=== PATIENT | male | born 1940 | race Caucasian/White ===

== ENCOUNTER 2017-09-19 12:44 | Observation (INO) | payer OTHER ==
[~2017-09-19] VITALS: Ht 170.2 cm; Wt 74.0 kg
[~2017-09-19 12:44] MED LIST: ASPCH81X PO; CARV12.52 PO; FRS/40 PO; IMDSR/30 PO; LISI-729 PO; POTA-335 PO; QUET1TAB30 PO; TAMS0.4C38 PO
[2017-09-19] MEDS ORDERED: PATIENT'S HEIGHT AND/OR WEIGHT NEEDED SCH (16:45)
--- NOTE | 2017-09-19 16:53 | History and Physical ---
History & Physical Date & Time of Service: Sep 19, 2017 at 16:45 Chief Complaint: Ischemic Cardio Myopathy,Defibrillator Lead [place] Primary Care Physician: Parth Flowers M.D. History of Present Illness Source: patient defibrillator is beeping Past Medical/Surgical History Medical Problems: (1) AICD lead malfunction (2) Ischemic dilated cardiomyopathy CAD Chronic systolic HF-NYHA class I RBBB HTN HLD Family History non-contributory Social History life long non-smoker Rare ETOH Smoking Status: Never Smoker Smokeless Tobacco Use: No Alcohol Use: socially Drug Use: none Occupational Status: retired Immunizations History of Influenza Vaccine: Unknown History of Tetanus Vaccine?: Unknown History of Pneumococcal: Unknown History of Hepatitis B Vaccine: Unknown Multi-Drug Resistant Organisms History of MDRO: No Allergies Coded Allergies: No Known Allergies (Unverified , 01/05/15) Home Medications Scheduled Aspirin (Aspirin Chewable), 81 MG PO DAILY Carvedilol (Coreg), 12.5 MG PO BID Furosemide (Lasix), 40 MG PO DAILY Isosorbide Mononitrate (Isosorbide Mononitrate ER), PO DAILY Lisinopril (Zestril), 5 MG PO DAILY Potassium Chloride (Micro-K Ext Rel), 20 MEQ PO DAILY Quetiapine Fumarate (Seroquel), 25 MG PO HS Tamsulosin Hcl (Flomax), 0.4 MG PO DAILY Review of Systems Constitutional: No fever, No weakness, No fatigue Eyes: No worsening of vision ENT: No sore throat Respiratory: No cough, No shortness of breath, No dyspnea on exertion Cardiovascular: No chest pain, No orthopnea, No edema, No palpitations Abdomen: No nausea, No vomiting, No diarrhea, No constipation Musculoskeletal: No joint pain, No swelling Genitourinary - Male: No hematuria, No dysuria Neurologic: No weakness Endocrine: No fatigue Integumentary: No rash Physical Exam General Appearance: WD/WN, no apparent distress Head: normocephalic, atraumatic Eyes: PERRL, EOMI Neck: supple, no JVD Respiratory/Chest: lungs clear, normal breath sounds Cardiovascular: regular rate, rhythm, no edema, no murmur Abdomen/GI: non tender, soft Extremities/Musculoskelatal: no pedal edema Neurologic/Psych: alert, oriented x 3 Skin: warm/dry (ICD site no threatened erosion) Diagnostics Laboratory Results labs pending ICD Interrogation in our office earlier today: Noise on the ICD lead unable to program around-concern for possible lead fracture Tachy therapies turned off Results Past 24 Hours Test 09/19/17 16:29 Range/Units Diagnostic Radiology cxr pending EKG pending Impression Assessment and Plan Impression: 1. ICD lead malfunction 2. ICM EF 20% s/p Single chamber ICD in 12/2014 3. CAD severe triple vessel disease medically managed 4. Chronic systolic HF-NYHA class I 5. RBBB 6. LAFB 7. HLD 8. HTN 9. MR 10. AI Plan: -for ICD lead revision tomorrow -NPO after midnight -Monitor on telemetry as his ICD tachy therapies are turned off so he will not receive an ICD shock should he go into VT/VF -Continue home medications -pre-op labs -cxr -ecg ASA Classification: ASA Class II Level of Care Telemetry Resuscitation Status FULL RESUSCITATION VTE Prophylaxis Risk Level: Low Given or contraindicated: T.E.D. Stockings Note Total Time: Critical Care 30 - 74 minutes
[2017-09-19 17:59] LABS: HEMOGLOBIN 14.5 g/dL (14.0-18.0); MEAN CELL VOLUME 92.1 fL (80-100); MEAN CORPUSCULAR HEMOGLOBIN 32.6 pg (25-34); MEAN CORPUSCULAR HGB CONC 35.4 g/dl (32-36); MEAN PLATELET VOLUME 10.2 fL (7.4-10.4); PLATELET COUNT 241 K/uL (130-400); RED CELL DISTRIBUTION WIDTH CV 13.1 % (11.5-14.5); WHITE BLOOD COUNT 7.86 K/uL (4.8-10.8)
[2017-09-19 18:19] LABS: BLOOD UREA NITROGEN 26 mg/dl (7-18); CALCIUM 8.8 mg/dl (8.5-10.1); CARBON DIOXIDE 26 mmol/L (21-32); CREATININE 1.34 mg/dl (0.60-1.40); GLUCOSE 97 mg/dl (70-99); POTASSIUM 4.2 mmol/L (3.5-5.1); SODIUM 137 mmol/L (136-145)
[2017-09-19 18:24] VITALS: BP 145/91; PULSE 95; TEMP 36.8; O2SAT 98; Ht 170.2 cm; Wt 74.0 kg
[2017-09-19] MEDS ORDERED: IV FLUIDS COMPLETED PRN (18:30)
[2017-09-19] MEDS ORDERED: NURSING VERBAL MED ORDER ONE ×2 (19:00→19:30)
[2017-09-19 19:15] VITALS: BP 122/68; PULSE 95; TEMP 36.7; O2SAT 94
[2017-09-19] MEDS ORDERED: PNEUMOCOCCAL ADMINISTRATION CHARGE ONE (19:30)
[2017-09-19] MEDS ORDERED: PNEUMOCOCCAL POLYSACCHARIDES 25 MCG/0.5 ML VIAL/SYR IM. ONE (19:30)
--- NOTE | 2017-09-19 19:42 | DIAGNOSTIC IMAGING REPORT ---
CHEST 2 VIEWS ROUTINE HISTORY: 77 years-old Male EXACT TIME ORDERED Evaluate for pneumothorax and lead placement status post placement of a left subclavian pacer/AICD. COMPARISON: Chest radiograph 01/07/2015 TECHNIQUE: PA and lateral views of the chest FINDINGS: Cardiac silhouette is within the upper limits of normal in size. Status post placement of a left subclavian pacer/AICD with single lead overlying the region of the right ventricle. No postprocedural pneumothorax identified. Lungs are clear without pleural effusion, focal airspace consolidation or overt pulmonary edema. Degenerative changes are seen within the shoulders and spine. IMPRESSION: Status post placement of a left subclavian pacer/AICD with single lead overlying the right ventricle. No postprocedural pneumothorax identified. The above report was generated using voice recognition software. It may contain grammatical, syntax or spelling errors. Electronically signed by: Kevin Johnson M.D. 09/19/2017 7:41 PM Dictated Date/Time: 09/19/2017 7:39 PM
[2017-09-19 20:00] VITALS: O2SAT 98
[2017-09-19] MEDS: CARVEDILOL 12.5 MG TAB PO SCH (20:47)
[2017-09-19] MEDS: ASPIRIN 81 MG ECTAB PO SCH (20:47)
[2017-09-19] MEDS ORDERED: ATORVASTATIN 40 MG TAB PO SCH (21:00)
[2017-09-19] MEDS ORDERED: TAMSULOSIN HCL 0.4 MG CAP PO SCH (21:00)
[2017-09-19] MEDS ORDERED: QUETIAPINE FUMARATE 25 MG TAB PO SCH (21:00)
[2017-09-20] VITALS (8 sets, daily range): BP systolic 103–121; BP diastolic 67–78; PULSE 74–95; TEMP 36.6–37; O2SAT 94–96
[2017-09-20] MEDS ORDERED: CEFAZOLIN IV 1,000 MG in DEXTROSE 5% 50ML 50 ML IV ONE (06:00)
[2017-09-20] MEDS ORDERED: CEFAZOLIN 1000MG IV PUSH 7.5 ML IV SCH (06:00)
[2017-09-20] MEDS ORDERED: LIDOCAINE HCL 1% 20 ML VIAL ONE (07:44)
[2017-09-20] MEDS ORDERED: BACITRACIN 50000 UNIT VIAL ONE (07:44)
[2017-09-20] MEDS ORDERED: BUPIVACAINE 0.5 % 5 MG/1 ML MPF 30ML VIAL ONE (07:44)
[2017-09-20] MEDS ORDERED: MIDAZOLAM HCL 5 MG/ML 1 ML VIAL ONE (08:25)
[2017-09-20] MEDS ORDERED: FENTANYL CITRATE INJ 50 MCG/1 ML 2 ML VIAL ONE (08:26)
[2017-09-20] MEDS ORDERED: CEFAZOLIN SOD 1 GM VIAL ONE (08:29)
[2017-09-20] MEDS ORDERED: POTASSIUM CHLORIDE 20 MEQ TABCR PO SCH (09:00)
[2017-09-20] MEDS ORDERED: FUROSEMIDE 40 MG TAB PO SCH (09:00)
[2017-09-20] MEDS ORDERED: LISINOPRIL 5 MG TAB PO SCH (09:00)
[2017-09-20] MEDS ORDERED: ISOSORBIDE MONONITRATE 30 MG TABCR PO SCH (09:00)
[2017-09-20] MEDS ORDERED: TAMSULOSIN HCL 0.4 MG CAP PO SCH (09:00)
[2017-09-20] MEDS ORDERED: ASPIRIN 81 MG ECTAB PO SCH (09:00)
--- NOTE | 2017-09-20 10:40 | Post Sedation Assessment ---
Post Sedation Assessment General Date of Sedation Sep 20, 2017. Vital Signs: Vital Signs Past 12 Hours Date Time Temp Pulse Resp B/P (MAP) Pulse Ox O2 Delivery O2 Flow Rate FiO2 09/20/17 10:30 71 16 118/75 (89) 96 Room Air 09/20/17 10:25 Room Air 09/20/17 10:20 Room Air 09/20/17 10:15 74 16 125/81 (96) 96 Room Air 09/20/17 08:04 Room Air 09/20/17 07:28 36.6 79 16 120/75 (90) 94 Room Air 09/20/17 04:02 37.0 80 16 119/72 (88) 96 Room Air 09/20/17 04:00 Room Air 09/20/17 00:09 36.9 78 18 114/73 (87) 96 Room Air 09/20/17 00:00 Room Air Post Procedure Recovery Score Activity: (2) Moves 4 extremities * Respiration: (2) Deep breath/cough Circulation: (2) +/-20% PreAnes Value Consciousness: (2) Fully Awake Oxygen Saturation: (2) > 92% On Room Air Post Anesthesia Score: 10 Discharge Sedation Level of Care: Fast Track Phase II Post Sedation Plan On clinical assessment, the patient appears to have tolerated the sedation without complications. Patient is recovering as anticipated. Patient will continue to be monitored by nursing and may be discharged when sedation discharge criteria are met per below protocol. Upon Completions of procedure and additional 15 minutes continue every 5 minute vital signs and the P.A.R. score; then discharge to a Phase I or Fast Track to Phase II per the following guidelines: * Discharge Patient to appropriate Phase II area if PAR is 8 or greater or return to pre- procedure baseline. The post - procedure orders will be as directed. * If PAR score is less than 8 or not return to pre-procedure baseline then patient will follow Phase I monitoring till PAR is reached for Phase II. The Phase I may be done in procedure room or may call to secure a Phase I area. * If naloxone or flumazenil are used for reversal, hold in Phase I for an additional 60 -120 minutes before discharge to Phase II. Please call the Sedation Physician to re-evaluate and complete post-note for discharge to Phase II area. Do NOT discharge from procedure sedation or Phase 1 until post- sedation evaluation note is complete by procedure /sedation MD Sedation Discharge Instructions to be given to the patient at discharge to home.
--- NOTE | 2017-09-20 10:41 | [facility] Post Operative Brief Note ---
Immediate Operative Summary Operative Date Sep 20, 2017. Pre-Operative Diagnosis ICD lead malfunction Post-Operative Diagnosis same Procedure(s) Performed new insertion of an ICD lead with peripheral venogram under fluroscopic guidance Surgeon royce salvador Platen Press Operator Apprentice Surgeon(s) none Estimated Blood Loss <5cc Findings See Below see official report Fluids (cc crystalloids) 200cc Specimens none Drains None Anesthesia Type IV Sedat Cons RN Only Complication(s) none Disposition Accompanied Pt To Recover: yes Disposition: PCU
--- NOTE | 2017-09-20 10:42 | Pre Sedation Assessment ---
Pre Sedation Assessment General Date of Sedation: Sep 20, 2017. Vital Signs Past 12 Hours Date Time Temp Pulse Resp B/P (MAP) Pulse Ox O2 Delivery O2 Flow Rate FiO2 09/20/17 10:30 71 16 118/75 (89) 96 Room Air 09/20/17 10:25 Room Air 09/20/17 10:20 Room Air 09/20/17 10:15 74 16 125/81 (96) 96 Room Air 09/20/17 08:04 Room Air 09/20/17 07:28 36.6 79 16 120/75 (90) 94 Room Air 09/20/17 04:02 37.0 80 16 119/72 (88) 96 Room Air 09/20/17 04:00 Room Air 09/20/17 00:09 36.9 78 18 114/73 (87) 96 Room Air 09/20/17 00:00 Room Air Review Cardiovascular: regular rate, rhythm Lungs: lungs clear Pre-Sedation Airway Assessment Smoking Status: Never Smoker Hx of Sleep Apnea: No Hx of difficult intubation: No Short Thick Neck: No Thyro-mental Distance: < or =3 Finger Breadths Oral Cavity: WNL Mallampati Classification: Class II ASA Classification: Class II Procedure Planning Contraindications for Sedation: None Current Medications Reviewed: Yes Notes The planned sedation has been discussed with the patient. Informed Consent was obtained. I have identified the patient, determined the appropriateness of sedation and have assessed the patient immediately prior to the procedure. All medicine(s) and interventions are by my order.
--- NOTE | 2017-09-20 10:42 | History & Physical Bridge Note ---
H&P Re-Evaluation Bridge Note: I have examined the patient, reviewed the History & Physical and in the interval since the performance of the History & Physical I have noted the following changes of clinical significance: No changes noted
--- NOTE | 2017-09-20 10:44 | Discharge Instructions ---
Discharge Instructions Date of Service Sep 20, 2017. Admission Reason for Admission: Aicd Lead Malfunction Discharge Discharge Diagnosis / Problem: icd lead malfunction Discharge Goals Goal(s): Improve function Activity Recommendations Activity Limitations: as noted below Lifting Limitations: no more than 10 pounds (do not lift the left elbow over the left shoulder for 1 month; do not lift more than 10 pounds with the left arm for 2 weeks) Shower/Bathe: tomorrow Driving or Machine Use: resume 1 day after discharge . Instructions / Follow-Up Instructions / Follow-Up ACTIVITY RECOMMENDATIONS: * Do not raise affected arm over head for 4 weeks. SPECIAL CARE INSTRUCTIONS: * If bleeding occurs, apply direct pressure to area for 5 minutes. * Call your doctor if you have severe pain, fever, drainage or bleeding at site. * Keep dry for 48 hours. * Keep any scheduled doctor's appointment. * Implant Card - hand held device with website information given. SKIN IRRITATION: * You may experience some redness and/or swelling in the area where radiation was administered. If any skin irritation occurs, please contact your family physician. FOLLOW UP VISIT: Keep any scheduled doctor appointments. Current Hospital Diet Patient's current hospital diet: AHA Diet (Heart Healthy) Discharge Diet Recommended Diet: AHA Diet (Heart Healthy), Low Sodium Diet (2gm Na) Procedures Procedures Performed: new insertion of an ICD lead with peripheral venogram under fluroscopic guidance Pending Studies Studies pending at discharge: no Medical Emergencies . Who to Call and When: Medical Emergencies: If at any time you feel your situation is an emergency, please call 911 immediately. . Non-Emergent Contact Non-Emergency issues call your: [employer] . . "Provider Documentation" section prepared by Marni Mckeon. .
[2017-09-20] MEDS ORDERED: OXYCODONE/ACETAMINOPHEN 5-325 TAB PO PRN (10:45)
--- NOTE | 2017-09-20 10:50 | Discharge Summary ---
Discharge Summary Date of Service Sep 20, 2017. Discharge Summary Admission Date: Sep 19, 2017 at 16:15 Discharge Date: Sep 20, 2017 Discharge Disposition: Home Principal Diagnosis: ICD lead malfunction Secondary Diagnoses/Problems: ICM EF 20% s/p ICD in 12/2014 CAD severe triple vessel-medically managed Chronic systolic HF, NYHA class I RBBB HLD HTN MR AI Procedures: New ICD lead insertion with peripheral venogram under fluoroscopic guidance Medication Reconciliation Continued Medications: Aspirin (Aspirin Chewable) 81 Mg Chew 81 MG PO DAILY Carvedilol (Coreg) 12.5 Mg Tab 12.5 MG PO BID, TAB Furosemide (Lasix) 40 Mg Tab 40 MG PO DAILY, TAB Isosorbide Mononitrate (Isosorbide Mononitrate ER) 30 Mg Tabcr PO DAILY Lisinopril (Zestril) 5 Mg Tab 5 MG PO DAILY, TAB Potassium Chloride (Micro-K Ext Rel) 20 Meq Cap 20 MEQ PO DAILY, CAP Quetiapine Fumarate (Seroquel) 25 Mg Tab 25 MG PO HS, TAB Tamsulosin Hcl (Flomax) 0.4 Mg Cap 0.4 MG PO DAILY, CAP Admission Information HPI (per Admitting provider): defibrillator is beeping Physical Exam (per Admitting): General Appearance: WD/WN, no apparent distress Head: normocephalic, atraumatic Eyes: PERRL, EOMI Neck: supple, no JVD Respiratory/Chest: lungs clear, normal breath sounds Cardiovascular: regular rate, rhythm, no edema, no murmur Abdomen/GI: non tender, soft Extremities/Musculoskelatal: no pedal edema Neurologic/Psych: alert, oriented x 3 Skin: warm/dry (ICD site no threatened erosion) Physical Exam (per Admitting): aaox3, NAD NC/AT, EOMI Supple No JVD Nrl S1/S2, no murmur CTA b/l No w/r/r Soft NT/ND No edema b/l No focal deficits Hospital Course Pt admitted due to ICD lead malfunction underwent a new ICD lead insertion without any complications. Thought is that the lead got fractured by subclavian crush. Pt was monitored post procedure and discharged home. Total time spent on discharge = 35 minutes This includes examination of the patient, discharge planning, medication reconciliation, and communication with other providers. Discharge Instructions ACTIVITY RECOMMENDATIONS: * Do not raise affected arm over head for 4 weeks. SPECIAL CARE INSTRUCTIONS: * If bleeding occurs, apply direct pressure to area for 5 minutes. * Call your doctor if you have severe pain, fever, drainage or bleeding at site. * Keep dry for 48 hours. * Keep any scheduled doctor's appointment. * Implant Card - hand held device with website information given. SKIN IRRITATION: * You may experience some redness and/or swelling in the area where radiation was administered. If any skin irritation occurs, please contact your family physician. FOLLOW UP VISIT: Keep any scheduled doctor appointments.
[2017-09-20] MEDS: ASPIRIN 81 MG ECTAB PO SCH (11:02)
[2017-09-20] MEDS: CARVEDILOL 12.5 MG TAB PO SCH (11:02)
--- NOTE | 2017-09-20 11:07 | DIAGNOSTIC IMAGING REPORT ---
CHEST ONE VIEW PORTABLE HISTORY: Pacemaker placement. COMPARISON: Chest 09/19/2017. FINDINGS: No pneumothorax. No pleural effusions. A few linear scarlike density at the left lung base remain unchanged. This favors scarring or atelectasis. No new focal lung consolidations. No evidence for pulmonary edema. The heart remains borderline enlarged. There is a left-sided pacemaker/defibrillator. There are 2 leads present which appear intact. IMPRESSION: Left-sided pacemaker/defibrillator. The leads appear intact. No pneumothorax. Electronically signed by: Joaquin Arceo M.D. 09/20/2017 11:06 AM Dictated Date/Time: 09/20/2017 11:04 AM
--- NOTE | 2017-09-20 12:36 | OPERATIVE REPORT ---
DATE OF OPERATION: 09/20/2017 PREOPERATIVE DIAGNOSIS: ICD lead malfunction. POSTOPERATIVE DIAGNOSIS: Same. PROCEDURE: New insertion of an RV ICD lead with peripheral venogram under fluoroscopic guidance. Attempted manual retraction of the old/existing ICD lead not successful. SURGEON: Dr. Marni Mckeon. ANESTHESIA: Monitored conscious sedation administered under my supervision by Rito Song. Start time 8:40, end time 10:15. A total of 4 mg of Versed, 100 mcg of fentanyl. IV FLUIDS: 200 mL ANTIBIOTICS: 1 gram Ancef. CONTRAST: 10 mL BLOOD LOSS: Less than 10 mL URINE OUTPUT: Not applicable. SPECIMENS: None. FINDINGS: See below. DRAINS: None. INDICATIONS: This is a 77-year-old gentleman who has a past medical history for ischemic cardiomyopathy, ejection fraction 20%, in which he underwent a single chamber ICD back in 12/2014, severe coronary artery disease that was medically managed, chronic systolic heart failure New Heart Association class 1, right bundle-branch block, hyperlipidemia, hypertension, mitral regurgitation and aortic insufficiency. He 2 days ago started having an alert tone from his defibrillator and his defibrillator was checked in the office yesterday and was found that the lead was malfunctioning probably due to a fracture from subclavian crush, had a few high impedances as well as a lot of noise on the lead, we were able to program around it. His tachy therapies were turned off at that time and he was recommended to come into the hospital last night in preparation for the lead revision today. CONSENT: Consent was obtained prior to the patient going into the electrophysiology lab. The patient was explained the risks, benefits and alternatives to the procedure. Risks include but not limited to sudden cardiac , cardiac arrhythmias, cerebrovascular accident, myocardial infarction, injury to the blood vessels, chamber of the heart, lung, bleeding and infection. The patient understood these risks and agreed to the procedure as planned. Informed consent was obtained. DESCRIPTION OF PROCEDURE: The patient was brought into the electrophysiology lab in fasting state. He was connected to continuous clinical leader. A timeout was performed to ensure the patient identity and procedure correctly. The patient was prepped and draped over the left infraclavicular space in normal surgical standard fashion. Moderate conscious sedation was given throughout the procedure for the patient's comfort level under my supervision. [place] precautions were maintained throughout the procedure. 20 mL of 1% lidocaine-bupivacaine mixture were given over the prior surgical incision. Incision was made over the prior surgical incision. Blunt dissection was performed down to the prior defibrillator generator. The capsule was disrupted using iris scissors. The defibrillator was ultimately freed from the capsule and removed from the body and detached from the lead and placed on the table, wrapped in a sterile gauze of antibiotics. Then, a peripheral venogram using 10 mL of IV contrast diluted in 10 mL of saline, followed by 20 mL flush was performed and venous access was obtained through an axillary stick without any problems. The Glidewire did go down without any resistance. Of note, I was concerned that right at the proximal clavicle, first rib sternal border, there may be a little bit of occlusion in the vein; however, a Glidewire did go through very nicely and smoothly without any problems. A 9.5-Hungarian sheath was then inserted over the guidewire without any resistance, the Glidewire and dilator removed. I then did blunt dissection down to the suture sleeve of the old lead and cut the suture sleeve and then I put a stylet down the lead and attempted to retract the screw of the old lead; however, it never budged. Under fluoroscopy, it looked like the screw mechanism must be defective because it never came back. We then intraoperatively started testing the lead and there did not appear to be any noise. While hooked up intraoperatively to the external cables on the old lead, I moved the patient's arm back and forth and did not see much noise. We then took the stylet out and connected to the device and put the device back in the pocket and I saw noise again. So I took the lead out of the device. Device was placed sterilely on top of the table again and was rechecking the lead when we could not get any signal and it was not until I eventually put a stylet back down, as I was passing the stylet through that, we started getting some signal with noise, and then as the stylet went down further past what I think was the injury site decompressed by the clavicle and the 1st rib, right by the sternum, as the wire went through there, then the noise subsided. Although I could never see a complete fracture on the chest x-ray or under fluoroscopy, we are assuming that the lead got damaged with tight compression on the vein there. We then set up to do a new right ventricular defibrillator lead, was passed through the 9.5-Hungarian sheath, and under fluoroscopic guidance, placed into the right ventricle. I tried to place it higher on the septum but he had a lot of ectopy and even some VT/VF, that all subsided once I removed the lead. The lead ultimately was placed in the RV apex but had a good distance away from the old prior existing lead in all 3 views. There were adequate pacing and sensing thresholds and no diaphragm stimulation with high output pacing. The 9.5-Hungarian sheath was peeled away and the lead was fixated to pectoralis muscle using 0 silk suture. I did try again some provocative movements while attached to the alligator cables on the new right ventricular lead, manipulating his arm a little bit and having the patient cough and breathe in, there seemed to be no noise. We did the same thing once I hooked up to the prior defibrillator and there seemed to be no noise. The old existing defibrillator lead was capped. The capsule of the pocket was disrupted inferiorly and caudally to allow for new blood flow. The pocket was flushed with copious amounts of bacitracin saline wash and inspected for hemostasis. Then, after the pocket was flushed, the defibrillator was attached to the new defibrillator lead, making sure that the pins were appropriate in position, passed set screws and set screws were tightened. Then, the defibrillator and the old lead and the new lead were placed in the antibiotic Tyrx pouch and then the defibrillator was placed in the pocket, making sure that the leads were lying flat beneath the device. Rima stat was placed in the pocket to ensure no further bleeding. The incision was then closed in a 3-layer fashion using 2-0 Vicryl interrupted suture, followed by 3-0 Vicryl interrupted suture, followed by 4-0 Monocryl running stitch and Dermabond was applied. EQUIPMENT: 1. The generator is [employer] VR, model #[id number], serial #[id number], implanted 01/06/2015. 2. The old existing right ventricular abandoned ICD lead is 6935M-62, serial #[id number]. 3. The cap on that lead is lot #[id number]. 4. The new right ventricular defibrillator lead is a Medtronic 6935M-62 cm, serial #[id number]. 5. The antibiotic pouch Tyrx absorbable lot #[id number]. INTRAOPERATIVE TESTIN. The old existing right ventricular defibrillator lead, R-waves were 8.5 millivolts, impedance 399 ohms and threshold was 0.75 volts. The RV coil was 73 ohms, and again, with movement of the body or moving a stylet in and out of the lead, there was noise on the lead. 2. The new right ventricular lead, R-waves 5.8 millivolts, impedance 608 ohms, threshold 0.6 volts at 1 milliamp. FINAL MEASUREMENTS THROUGH THE DEVICE: 1. R-waves 6.8 millivolts, impedance 513 ohms, threshold 0.5 volts at 0.4 milliseconds. 2. The RV coil 79 ohms. FINAL PARAMETERS: VVI 40, right ventricular amplitude 3.5 volts, pulse width 0.4 milliseconds, sensitivity 0.3 millivolts, VF zone at 200 beats per minute, 30/40 detection intervals, VT zone at 167 beats per minute, 16 detection intervals. DFTs from initial implant were 25 joules and monitor zone at 143 beats per minute, 32 intervals. IMPRESSION: Successful new right ventricular ICD lead insertion secondary to old one malfunctioning, probably due to subclavian crush. PLAN: Monitor the patient post-sedation. He is not allowed to lift the left elbow over left shoulder for 1 month. He cannot lift more than 10 pounds with the left arm for 2 weeks. He can shower tomorrow, let water run over the incision, do not scrub it. We will get a chest x-ray today as well as an EKG. He can continue his home medications. He will follow up in our [place] office next week for device and wound check. We will let him go home later this afternoon if he is feeling fine. I attest to the content of the Intraoperative Record and any orders documented therein. Any exception s are noted below.
== END 2017-09-20 15:01 | disposition home or self-care (01) ==
LOC: C.2T 16:15 → INTOOBSV 16:15
PROVIDERS: ADMIT Internal Medicine; ATTEND Internal Medicine
DX: T82.190A Other mechanical complication of cardiac electrode, initial encounter (principal); Y83.1 Surgical operation with implant of artificial internal device as the cause of abnormal reaction of the patient, or of later complication, without mention of misadventure at the time of the procedure; I25.10 Atherosclerotic heart disease of native coronary artery without angina pectoris; I11.0 Hypertensive heart disease with heart failure; I50.22 Chronic systolic (congestive) heart failure; I45.10 Unspecified right bundle-branch block; E78.5 Hyperlipidemia, unspecified; I08.0 Rheumatic disorders of both mitral and aortic valves; Z79.82 Long term (current) use of aspirin